=== PATIENT | male | born 1955 | race Caucasian/White ===

== ENCOUNTER 2022-10-27 07:30 | Day surgery (SDC) | payer MEDICARE, OTHER ==
[~2022-10-27] VITALS: Ht 185.4 cm; Wt 91.0 kg
[~2022-10-27 07:30] MED LIST: FLOMAX0.4 MG PO; PRISTIQ ER50 MG PO; VITAMIN C500 M1 PO; ZESTRIL20 MG PO
[2022-10-27] MEDS ORDERED: FISH OIL 1,2001 EACH PO (07:52)
--- NOTE | 2022-10-27 09:20 | NUR ---
10/27/22 0920 Caroline Pro 0915 PT ARRIVED TO PACU ON RA, RESP EVEN AND UNLABORED. PT WAKES TO TACTILE STIMULI AND DENIES CONCERNS. PT ENCOURAGED TO PASS GAS.
--- NOTE | 2022-10-27 11:59 | OR ---
[facility] [address], [place] [address] Signed DATE OF OPERATION: 10/27/2022 SURGEON: Amira Christina MD PREOPERATIVE DIAGNOSES: 1. Personal history of colonic polyps (). 2. Diverticulosis. 3. Internal and external hemorrhoids. POSTOPERATIVE DIAGNOSES: 1. A 4 mm polyp at 65 cm in left colon. 2. A 4 mm polyp on the ileocecal valve. 3. Vmrjmuw-ct-vuthbuqi sigmoid diverticulosis. 4. Qsdzavh-hu-penjzuim internal and external hemorrhoids. PROCEDURE: Colonoscopy with hot biopsy. ESTIMATED BLOOD LOSS: None. INDICATIONS: Evan is a 67-year-old gentleman, asked to see me for followup colonoscopy. He said he has no lower GI complaints. There is no family history of colon cancer or polyps. I helped him with his colonoscopy in 2008 at the age of 54. He had a 5 mm serrated adenomatous cecal polyp with mild dysplasia. He had a little diverticulosis. He had hyperplastic polyps in the rectum. He returned in three years for followup colonoscopy. He always does well with Versed and fentanyl. In 2016 at age of 61, we found an adenomatous polyp about 4 mm in diameter in the cecum. He had hyperplastic polyps in his rectum. He had internal and external hemorrhoids along with diverticulosis. We asked him to come back in 5 years. In the office, I gave him a pamphlet on colonoscopy. We had reviewed the nature of the test. There is risk including, but not limited to gas bloating, crampy abdominal pain, bleeding, perforation requiring surgery, and missed diagnosis. We also reviewed the need for IV conscious sedation. He had expressed understanding and wished to proceed. DESCRIPTION OF PROCEDURE: Evan was taken into our endoscopy suite and placed in the left lateral decubitus position. He was given 5 mg of Versed and 100 mcg of fentanyl to cover the case. A digital rectal exam was performed and this showed pfkrptp-gu-cmrvorrk external Electronically Signed By: AMIRA CHRISTINA MD 10/27/22 1159 PATIENT NAME: EVAN MELENDEZ OPERATIVE REPORT DATE OF : 53 REPORT #: [id number] PHYSICIAN: AMIRA CHRISTINA MD PCP: THANIA FUNK PA-C REPORT IS CONFIDENTIAL AND NOT TO BE RELEASED WITHOUT AUTHORIZATION [facility] [address], [place] [address] Signed hemorrhoids. He had good sphincter tone. There were no masses. His prostate is getting indurated and enlarged consistent with his age. The adult colonoscope was introduced and advanced all around into the cecum under direct visualization of camera. It took just a little extra sedation and abdominal compression in order to advance the scope. His prep was quite excellent. We could easily see the appendiceal orifice and ileocecal valve. The scope was then slowly withdrawn. We took pictures throughout for photodocumentation. The above two polyps were easily removed with the help of hot biopsy forceps. Again, he has diverticulosis in the sigmoid colon. They were hqgwi-kz-uariiivm in size, few in number, and scattered about. Once in the rectum, the scope was retroflexed and he does have ckjsrgd-cw-dnutauma internal hemorrhoids. After this, the gas was suctioned out. The colonoscope removed. Evan tolerated procedure quite well. RECOMMENDATIONS: I will see Evan back in my office in 7 to 14 days to review his results. It looks like he is going to be on the five year plan. Amira Christina MD ALB/MODL /[id number] cc: Patient Chart MD Thania Garcia PA Copies: AMIRA CHRISTINA MD ~ Electronically Signed By: AMIRA CHRISTINA MD 10/27/22 1159 PATIENT NAME: EVAN MELENDEZ OPERATIVE REPORT DATE OF : 53 REPORT #: [id number] PHYSICIAN: AMIRA CHRISTINA MD PCP: THANIA FUNK PA-C REPORT IS CONFIDENTIAL AND NOT TO BE RELEASED WITHOUT AUTHORIZATION
== END 2022-10-27 09:48 | disposition home or self-care (01) ==
LOC: DS 07:30 → OPS 07:30 → DS 09:00 → OPS 09:48
PROVIDERS: ATTEND Colon & Rectal Surgery
PROC: 0DBC8ZX Excision of Ileocecal Valve, Via Natural or Artificial Opening Endoscopic, Diagnostic (ICD-10-PCS; 2022-10-27)
PROC: 0DBM8ZX Excision of Descending Colon, Via Natural or Artificial Opening Endoscopic, Diagnostic (ICD-10-PCS; principal; 2022-10-27 09:00)
DX: D12.4 Benign neoplasm of descending colon (principal); K57.30 Diverticulosis of large intestine without perforation or abscess without bleeding; K63.5 Polyp of colon; K64.8 Other hemorrhoids; K64.4 Residual hemorrhoidal skin tags
CPT/HCPCS: 99153; G0500; J2250; J3010; J7121